=== PATIENT | female | born 1935 | race Caucasian/White ===

== ENCOUNTER 2016-07-11 09:18 | Day surgery (SDC) | payer OTHER ==
[2016-07-06 11:20] VITALS: BMI 25.7
[2016-07-11 11:07] VITALS: TEMP 98.3
[2016-07-11] MEDS ORDERED: PROPOFOL 20 ML ONE (11:16)
[2016-07-11 12:29] VITALS: BP 136/76; PULSE 56
--- NOTE | 2016-07-12 11:24 | PATH ---
Surgical Pathology Report Patient Name: SUZANNE FRANKEL [facility]. Rec. #: [id number] /Age/Gender: 1935 (Age: 80) / F Account: [id number] Location: [facility] Taken: 07/11/2016 Received: 07/11/2016 Reported: 07/12/2016 Physicians: Jon Donnelly M.D. Specimen(s) Received A: BX DUODENUM B: BX ANTRUM Clinical History Duodenal polyp Gastritis, duodenal polyp, hiatal hernia Final Diagnosis A. DUODENUM, BIOPSY: DUODENAL MUCOSA WITH NO PATHOLOGIC CHANGES. NO HISTOLOGIC EVIDENCE OF GLUTEN SENSITIVE ENTEROPATHY (CELIAC SPRUE) IDENTIFIED. B. STOMACH, ANTRUM, BIOPSY: FOCAL MILD CHRONIC GASTRITIS. IMMUNOSTAIN FOR H. PYLORI IS NEGATIVE. Electronically Signed Dwayne Frias M.D. Gross Description A. Received in formalin, labeled "duodenum" are 2 guzman, irregular portions of soft tissue averaging 0.2 cm. in greatest dimension. The specimens are submitted in toto in one cassette. B. Received in formalin, labeled "antrum" are 2 guzman, irregular portions of soft tissue averaging 0.3 cm. in greatest dimension. The specimens are submitted in toto in one cassette. 07/11/201607/11/2016
== END 2016-07-11 12:30 | disposition home or self-care (01) ==
LOC: FASU-ENDO 09:18
PROVIDERS: ATTEND Internal Medicine Gastroenterology
PROC: 0DB68ZX Excision of Stomach, Via Natural or Artificial Opening Endoscopic, Diagnostic (ICD-10-PCS; 2016-07-11)
PROC: 0DB98ZX Excision of Duodenum, Via Natural or Artificial Opening Endoscopic, Diagnostic (ICD-10-PCS; principal; 2016-07-11 11:36)
DX: Z13.810 Encounter for screening for upper gastrointestinal disorder (principal); K44.9 Diaphragmatic hernia without obstruction or gangrene; K29.50 Unspecified chronic gastritis without bleeding
CPT/HCPCS: 88305-TC; 88342-TC

== ENCOUNTER 2018-07-19 12:31 | Day surgery (SDC) | payer OTHER ==
[2018-07-18 15:06] VITALS: BMI 25.4
[2018-07-19] MEDS ORDERED: MIDAZOLAM HCL 2 MG/2 ML SINGLE DOSE VIAL ONE (13:41)
[2018-07-19] MEDS ORDERED: PROPOFOL 20 ML ONE (13:41)
[2018-07-19] MEDS ORDERED: ONDANSETRON 4 MG/2 ML VIAL IVPUSH PRN ×2 (13:50→14:47)
[2018-07-19] MEDS ORDERED: ACETAMINOPHEN 325 MG TABLET (FP) PO PRN (13:50)
[2018-07-19] MEDS ORDERED: LACTATED RINGERS SOLUTION 1,000 ML IV SCH (14:00)
[2018-07-19] MEDS ORDERED: ceFAZolin SODIUM 1 GM VIAL IVPB ONE (14:14)
[2018-07-19] MEDS ORDERED: IBUPROFEN 800 MG/8 ML IJ IVPB PRN (14:47)
[2018-07-19] MEDS ORDERED: oxyCODONE HCL 5 MG TABLET PO PRN (14:47)
[2018-07-19] MEDS ORDERED: IBUPROFEN 600 MG TABLET (FP) PO PRN (14:47)
--- NOTE | 2018-07-19 14:53 | HP ---
History & Physical Update - Physical Physical: No Change - Assessment Assessment: No Change - Plan Plan: No Change (no changes for hysteroscopy D&C , polypectomy)
[2018-07-19] MEDS ORDERED: ELECTROLYTE-148 SOLN 1,000 ML IV SCH (15:00)
[2018-07-19 16:36] VITALS: BP 145/74; PULSE 83; TEMP 98.1
--- NOTE | 2018-07-19 18:43 | OP ---
DATE OF OPERATION: 07/19/2018 PREOPERATIVE DIAGNOSIS: Pyometrium and postmenopausal bleeding. POSTOPERATIVE DIAGNOSIS: Pyometrium and postmenopausal bleeding. PROCEDURE: Hysteroscopy, dilatation and curettage, and polypectomy. SURGEON: Luis Manuel Bucio MD ANESTHESIA: General. ANESTHESIOLOGIST: Fausto Morgan MD ESTIMATED BLOOD LOSS: 100 mL. OPERATIVE PROCEDURE: The patient was taken to the operating room and adequate general anesthesia induced. In the lithotomy position, evaluation under anesthesia revealed external genitalia to be normal. A large cystocele. Second-degree uterine prolapse. Cervix, no gross lesion. Uterus was normal size. Adnexa, no masses were palpable. Then, with the weighted speculum in the vagina, anterior lip of cervix was grasped with a single-toothed tenaculum. Then, uterine cavity was sounded to 6 cm. Then, the cervix was slightly dilated with Hegar dilator, and then hysteroscope was introduced. Visualization of endocervical canal appeared to be normal. Endometrium was atrophic for the most part, but there was like a polypoid with blood clot attached to it hanging in the uterine cavity and both cornual regions were identified. No other abnormality was found except the endometrium was injected and red. Then the hysteroscope was withdrawn, and endometrium was curetted. The patient tolerated the procedure well, left the OR in good condition. LUIS MANUEL BUCIO M.D. [id number]
--- NOTE | 2018-07-24 14:20 | PATH ---
Surgical Pathology Report Patient Name: SUZANNE FRANKEL [facility]. Rec. #: [id number] /Age/Gender: 1935 (Age: 82) / F Account: [id number] Location: [facility] SURGICAL Taken: 07/19/2018 Received: 07/20/2018 Reported: 07/24/2018 Physicians: Luis Manuel Bucio M.D. Specimen(s) Received ENDOMETRIAL CURETTINGS Clinical History Postmenopausal bleeding Final Diagnosis ENDOMETRIAL CURETTINGS: SECRETORY TYPE ENDOMETRIUM SHOWING SEVERE ACUTE AND CHRONIC ENDOMETRITIS ADMIXED WITH BLOOD CLOT. SEPARATE ENDOCERVICAL TISSUE WITH SQUAMOUS METAPLASIA. Comment: Immunohistochemistry stains (block A1) [place] and Lambda done in [place], [place] ([id number]) and interpreted at [facility] show a polyclonal population of plasma cells in the stroma. Positive and negative controls (internal if applicable) show appropriate results. Electronically Signed Sina Dalton M.D. Gross Description Received in formalin labeled "endometrial curetting," is a 4.5 x 4.5 x 0.6 cm aggregate of guzman-brown tissue fragments admixed with blood clot. The formalin is filtered and the specimen is entirely submitted in a 4 cassettes. /07/20/201807/20/2018
== END 2018-07-19 16:37 | disposition home or self-care (01) ==
LOC: JASU-SURG 12:31
PROVIDERS: ATTEND Obstetrics & Gynecology
PROC: 0UDB7ZX Extraction of Endometrium, Via Natural or Artificial Opening, Diagnostic (ICD-10-PCS; principal; 2018-07-19 14:00)
PROC: 0UJD8ZZ Inspection of Uterus and Cervix, Via Natural or Artificial Opening Endoscopic (ICD-10-PCS; 2018-07-19 14:00)
DX: N95.0 Postmenopausal bleeding (principal); N71.9 Inflammatory disease of uterus, unspecified; N81.4 Uterovaginal prolapse, unspecified
CPT/HCPCS: 88305-TC; 94760

== ENCOUNTER 2018-08-28 13:00 | Observation (INO) | payer OTHER ==
--- NOTE | 2018-08-28 13:46 | PDOC ---
History of Present Illness - General Chief Complaint: Lightheaded Stated Complaint: NAUSEA Time Seen by Provider: 08/28/18 13:13 History Source: Patient Exam Limitations: No Limitations - History of Present Illness Initial Comments: 08/28/18 13:42 Pt is an 83yo F with PMH of HTN, Thyroid Nodule, Anxiety BIBA to ED with complaints of lightheadedness, dizziness and diaphoresis. Pt states she was vacuuming and when she bent over to unplug the cord, she stared feeling dizzy, nauseous and started sweating. She rested her head on her dresser and felt numbness in her arms up to the elbows. She worried and called EMS. She denies chest pain, sob, syncope at the time. She has been having congestion x2 weeks and is taking a decongestant which is helping her cough up the phlegm. PMD: Boxer PMH: see hpi PSH: cholecystectomy Meds: Allergies: ndka Past History - Past Medical History Allergies/Adverse Reactions: Allergies Allergy/AdvReac Type Severity Reaction Status Date / Time No Known Drug Allergies AdvReac Verified 08/28/18 13:07 Home Medications: Ambulatory Orders Ergocalciferol (Vitamin D2) [Vitamin D2] 2,000 unit PO DAILY 07/18/18 Multivit-Min/FA/Lycopen/Lutein [Centrum Silver Tablet] 1 each PO DAILY 07/18/18 Sertraline HCl [Zoloft] 100 mg PO DAILY 07/18/18 Vitamin E 400 unit PO DAILY 07/18/18 Omeprazole 20 mg PO DAILY 08/28/18 Anemia: No Asthma: No Cancer: No Cardiac Disorders: No (CAD-PT DENIES) CVA: No COPD: No CHF: No Dementia: No Diabetes: No GI Disorders: Yes (GERD, GASTRITIS; SCHTZKI'S RING; DUODENAL ADENOMA) Disorders: No HTN: Yes Hypercholesterolemia: No Liver Disease: No Seizures: No Thyroid Disease: Yes (NODULE PARATHROID RESOLVED) - Surgical History Abdominal Surgery: No Appendectomy: No Cardiac Surgery: No Cholecystectomy: Yes Lung Surgery: No Neurologic Surgery: No Orthopedic Surgery: No - Suicide/Smoking/Psychosocial Hx Smoking History: Former smoker Have you smoked in the past 12 months: No If you are a former smoker, when did you quit?: many years ago Information on smoking cessation initiated: No Hx Alcohol Use: Yes (RARE) Drug/Substance Use Hx: No Substance Use Type: None Hx Substance Use Treatment: No Review of Systems - Review of Systems Constitutional: No: Chills, Fever, Weakness HEENTM: No: Eye Pain, Blurred Vision, Double Vision Respiratory: No: Cough, Shortness of Breath, Hemoptysis Cardiac (ROS): Yes: Lightheadedness. No: Chest Pain, Palpitations, Syncope ABD/GI: Yes: Nausea. No: Constipated, Diarrhea, Rectal Bleeding, Vomiting : No: Symptoms Reported Musculoskeletal: No: Back Pain, Joint Pain, Neck Pain Integumentary: No: Symptoms Reported Neurological: Yes: See HPI, Numbness, Dizziness. No: Headache, Tingling, Tremors, Weakness *Physical Exam - Vital Signs Last Vital Signs Temp Pulse Resp BP Pulse Ox 98.3 F 74 18 148/72 96 08/28/18 13:08 08/28/18 13:08 08/28/18 13:08 08/28/18 13:08 08/28/18 13:08 - Physical Exam General Appearance: Yes: Nourished, Appropriately Dressed. No: Apparent Distress HEENT: positive: EOMI, JAH, Normal ENT Inspection Neck: positive: Trachea midline, Supple. negative: Carotid bruit, Lymphadenopathy (R), Lymphadenopathy (L) Respiratory/Chest: positive: Lungs Clear, Normal Breath Sounds. negative: Crackles, Rales, Rhonchi, Stridor, Wheezing Cardiovascular: positive: Regular Rhythm, Regular Rate, S1, S2. negative: Edema , JVD, Murmur Vascular Pulses: Carotid (R): 2+, Carotid (L): 2+, Dorsalis-Pedis (R): 2+, Doralis-Pedis (L): 2+ Gastrointestinal/Abdominal: positive: Normal Bowel Sounds, Soft. negative: Tender Musculoskeletal: negative: CVA Tenderness, Vertebral Tenderness Extremity: positive: Normal Capillary Refill, Pelvis Stable. negative: Pedal Edema, Swelling, Calf Tenderness Integumentary: positive: Normal Color, Dry, Warm Neurologic: positive: vegetable trimmer II-XII NML intact, Fully Oriented, Alert, Normal Mood/ Affect, Normal Response, Motor Strength 5/5 ED Treatment Course - LABORATORY CBC & Chemistry Diagram: 08/28/18 14:10 08/28/18 14:10 Medical Decision Making - Medical Decision Making 08/28/18 23:35 Pt is an 83yo F with PMH of HTN, Thyroid Nodule, Anxiety BIBA to ED with complaints of lightheadedness, dizziness and diaphoresis. Pt states she was vacuuming and when she bent over to unplug the cord, she stared feeling dizzy, nauseous and started sweating. She rested her head on her dresser and felt numbness in her arms up to the elbows. She worried and called EMS. She denies chest pain, sob, syncope at the time. She has been having congestion x2 weeks and is taking a decongestant which is helping her cough up the phlegm. Vitals: wnl PE: benign, lungs cta, no neurological deficits. normal heart sounds Ddx includes but not limited to syncope/presyncope (arrhytmia, v. orthostatic v. dehydration), cva/tia, bronchitis -labs, trop -ekg, cxr -fluids, meclizine labs wnl, trop negative. ekg nsr, no eileen or depressions. cxr no acute pathology will admit for presyncope. *DC/Admit/Observation/Transfer Diagnosis at time of Disposition: Near syncope, Lightheaded - Referrals - Patient Instructions - Post Discharge Activity
[2018-08-28 14:22] LABS: BASO % 1.3 % (0-2.0); EOS % 1.5 % (0-4.5); HEMATOCRIT 42.6 % (32.4-45.2); HEMOGLOBIN 14.4 GM/dL (10.7-15.3); LYMPH % 10.7 % (8-40); MCH 26.9 pg (25.7-33.7); MCHC 33.9 g/dl (32.0-36.0); MEAN CELL VOLUME 79.3 fl (80-96); MEAN PLT VOLUME 7.8 fl (7.5-11.1); MONO % 9.4 % (3.8-10.2); NEUT % 77.1 % (42.8-82.8); PLATELET COUNT 373 K/MM3 (134-434); RBC 5.37 M/mm3 (3.60-5.2); RDW 14.6 % (11.6-15.6); WHITE BLOOD COUNT 11.7 K/mm3 (4.0-10.0)
[2018-08-28 14:56] LABS: ALBUMIN 3.8 g/dl (3.4-5.0); ALK PHOS 95 U/L (45-117); ANION GAP 7 MMOL/L (8-16); BILIRUBIN,TOTAL 0.5 mg/dL (0.2-1); BLOOD UREA NITROGEN 22 mg/dL (7-18); CALCIUM 9.1 mg/dL (8.5-10.1); CHLORIDE 102 mmol/L (98-107); CO2 27 mmol/L (21-32); GLUCOSE,RANDOM 98 mg/dL (74-106); MAGNESIUM 1.9 mg/dL (1.8-2.4); POTASSIUM 4.6 mmol/L (3.5-5.1); SGOT/AST 18 U/L (15-37); SGPT/ALT 23 U/L (13-61); SODIUM 136 mmol/L (136-145); TOT PROT 7.5 g/dl (6.4-8.2)
--- NOTE | 2018-08-28 15:28 | PDOC ---
Documentation entered by Estuardo Sparrow SCRIBE, acting as scribe for Hernan Veliz MD. Hernan Veliz MD: This documentation has been prepared by the Andrews lerner Collisia, SCRIBE, under my direction and personally reviewed by me in its entirety. I confirm that the documentation accurately reflects all work, treatment, procedures, and medical decision making performed by me. Attending Attestation - Resident Resident Name: Chanda Smith - ED Attending Attestation I have performed the following: I have examined & evaluated the patient, The case was reviewed & discussed with the resident, I agree w/resident's findings & plan, Exceptions are as noted - HPI HPI: 08/28/18 14:55 The patient is a 83 year old female with a significant past medical history of hypertension, prolapse uterus, anxiety and thyroid nodule who presents to the emergency department with lightheadedness since earlier today. The patient reports that she was at home cleaning earlier this morning when she began to experience an onset of lightheadedness. The patient states that she had just finished vacuuming and bent down to unplug it from the outlet when she felt an onset of dizziness. The patient states that she felt like she was going to pass out and she had some difficulty making it over to her bed to sit down. The patient reports some associated nausea and diaphoresis with her lightheadedness. The patient also reports some associated arm numbness. She denies any blurry vision, extremity weakness, chest pain, shortness of breath. The patient denies any fever, chills, vomiting, diarrhea, constipation or urinary symptoms. The patient denies any other complaint. - Physicial Exam PE: 08/28/18 15:13 Vitals: Triage vital signs reviewed General Appearance: No acute distress, well nourished, well developed Head: Atraumatic Chest Wall: Nontender Cardiac: Regular rate and rhythm, no murmurs, no rubs, no gallops Lungs: Clear to auscultation bilateral, good air movement bilaterally Abdomen: Soft, nondistended, normal bowel sounds, nontender to palpation Genitourinary: Rectal: Exam deferred Extremities: Full range of motion to all extremities, no cyanosis, clubbing, or edema Skin: Warm and dry, no rashes or lesions, no rash, no petechiae Neuro: AOX3; Cranial Nerves 2-12 grossly intact, Strength intact to all extremities, Sensation intact to all extremities, gait normal Psych: Normal mood, normal affect - Medical Decision Making 08/28/18 14:55 The patient is a 83 year old female with a significant past medical history of hypertension, prolapse uterus, anxiety and thyroid nodule who presents to the emergency department with lightheadedness since earlier today. The patient will get labs, EKG and chest X-ray for further evaluation. EKG laboratory analysis grossly unremarkable EKG demonstrates ventricular paced rhythm with occasional PVCs Interpreted by me Given that patient still remained somewhat symptomatic with this sensation of presyncope/lightheadedness we'll observe overnight for telemetry monitoring
--- NOTE | 2018-08-28 15:36 | EKG ---
Test Reason : Blood Pressure : / mmHG Vent. Rate : 076 BPM Atrial Rate : 076 BPM P-R Int : 122 ms QRS Dur : 078 ms QT Int : 408 ms P-R-T Axes : 057 049 059 degrees QTc Int : 459 ms NORMAL SINUS RHYTHM NORMAL ECG WHEN COMPARED WITH ECG OF 24-AUG-2010 15:17, NO SIGNIFICANT CHANGE WAS FOUND Confirmed by Markell Sanchez ([id number]) on 08/28/2018 3:35:32 PM Referred By: Confirmed By:Markell Sanchez
[2018-08-28] MEDS ORDERED: MECLIZINE HCL 25 MG TABLET (FP) PO ONE (16:27)
[2018-08-28] MEDS ORDERED: SODIUM CHLORIDE 0.9% 1000 ML INFUS.BAG IV ONE (16:27)
[2018-08-28] MEDS ORDERED: MECLIZINE HCL 25 MG TABLET (FP) ONE (16:42)
--- NOTE | 2018-08-28 17:04 | HP ---
CHIEF COMPLAINT: "i feel light headed" PCP: HISTORY OF PRESENT ILLNESS: This is an 83yo F with PMH of HTN, Thyroid Nodule, Anxiety, who presents to ED due to lightheadedness, dizziness and diaphoresis. She was vacuum cleaning and felt at baseline, when she bent over and suddenly felt light headed, sweaty, flushed and nauseous. the sensation quickly passed when she rested other than mild lightheadedness. she had similar episodes in the past with position change but less severe. she denies cp, palpitations, syncope, tinnitus, vomiting. patient also endorses light cough productive of small amounts of green sputum x 2w, has not taen abx. deneis f/c, sob. ER course was notable for: (1)cxr (2)ekg, labs (3)IVF, antivert Recent Travel: denies PAST MEDICAL HISTORY: as above PAST SURGICAL HISTORY: as above Social History: Smoking: denies Alcohol: denies Drugs: denies Family History: noncontributory Allergies No Known Drug Allergies Adverse Reaction (Verified 08/28/18 13:07) HOME MEDICATIONS: Home Medications Medication Instructions Recorded Ergocalciferol (Vitamin D2) 2,000 unit PO DAILY 07/18/18 [Vitamin D2] Multivit-Min/FA/Lycopen/Lutein 1 each PO DAILY 07/18/18 [Centrum Silver Tablet] Sertraline HCl [Zoloft] 100 mg PO DAILY 07/18/18 Vitamin E 400 unit PO DAILY 07/18/18 Omeprazole 20 mg PO DAILY 08/28/18 REVIEW OF SYSTEMS CONSTITUTIONAL: Absent: fever, chills HEENT: Absent: rhinorrhea, nasal congestion, throat pain CARDIOVASCULAR: Absent: chest pain, syncope, palpitations, irregular heart rate, peripheral edema RESPIRATORY: Absent: shortness of breath, dyspnea with exertion, orthopnea, wheezing, stridor , hemoptysis GASTROINTESTINAL: Absent: abdominal pain, abdominal distension, nausea, vomiting, diarrhea, constipation, melena, hematochezia GENITOURINARY: Absent: dysuria, flank pain MUSCULOSKELETAL: Absent: back pain, neck pain SKIN: Absent: rash, itching, pallor HEMATOLOGIC/IMMUNOLOGIC: Absent: easy bleeding, easy bruising, lymphadenopathy, frequent infections ENDOCRINE: Absent: unexplained weight gain, unexplained weight loss, heat intolerance, cold intolerance NEUROLOGIC: Absent: headache, focal weakness or paresthesias PSYCHIATRIC: Absent: anxiety, depression PHYSICAL EXAMINATION Vital Signs - 24 hr 08/28/18 08/28/18 08/28/18 13:08 14:20 14:39 Temperature 98.3 F Pulse Rate 74 Pulse Rate [ 80 Right Radial] Pulse Rate [ 76 Right side Standing] Pulse Rate [ 80 Right side Supine] Respiratory 18 18 Rate Blood Pressure 148/72 Blood Pressure 151/83 [Left Arm] Blood Pressure 152/87 [Right side Standing] Blood Pressure 169/64 [Right side Supine] O2 Sat by Pulse 96 95 Oximetry (%) GENERAL: Awake, alert, and fully oriented, in no acute distress. HEAD: Normal with no signs of trauma. EYES: Pupils equal, round and reactive to light, extraocular movements intact, sclera anicteric, conjunctiva clear. EARS, NOSE, THROAT: Moist mucous membranes. NECK: supple without JVD LUNGS: Breath sounds equal, clear to auscultation bilaterally. HEART: Regular rate and rhythm, normal S1 and S2 ABDOMEN: Soft, nontender, not distended, normoactive bowel sounds, no guarding, no rebound, no masses. MUSCULOSKELETAL: No CVA tenderness. UPPER EXTREMITIES: 2+ pulses, warm, well-perfused. No cyanosis. No clubbing. No peripheral edema. LOWER EXTREMITIES: 2+ pulses, warm, well-perfused. No calf tenderness. No peripheral edema. NEUROLOGICAL: Cranial nerves II-XII grossly intact. Normal speech. PSYCHIATRIC: Cooperative. Good eye contact. Appropriate mood and affect. SKIN: Warm, dry Laboratory Results - last 24 hr 08/28/18 08/28/18 14:10 14:10 WBC 11.7 H RBC 5.37 H Hgb 14.4 Hct 42.6 MCV 79.3 L MCH 26.9 MCHC 33.9 RDW 14.6 Plt Count 373 MPV 7.8 Absolute Neuts (auto) 9.0 H Neutrophils % 77.1 Lymphocytes % 10.7 Monocytes % 9.4 Eosinophils % 1.5 Basophils % 1.3 Nucleated RBC % 0 Sodium 136 Potassium 4.6 Chloride 102 Carbon Dioxide 27 Anion Gap 7 L BUN 22 H Creatinine 1.0 Creat Clearance w eGFR 53.08 Random Glucose 98 Calcium 9.1 Magnesium 1.9 Total Bilirubin 0.5 AST 18 ALT 23 Alkaline Phosphatase 95 Troponin I < 0.02 Total Protein 7.5 Albumin 3.8 ASSESSMENT/PLAN: This is an 83yo F with PMH of HTN, Thyroid Nodule, Anxiety, who presents to ED due to lightheadedness, dizziness and diaphoresis. positional dizziness, likely orthostatic bronchitis HTN -ekg wnl, no acs, no strain. -IVF hydration -orthostatic vital signs tomorrow -azithomycin -continue zoloft and ppi Problem List - Problem (1) Bronchitis Code(s): J40 - BRONCHITIS, NOT SPECIFIED ACUTE OR CHRONIC (2) Lightheaded Code(s): R42 - DIZZINESS AND GIDDINESS (3) Near syncope Code(s): R55 - SYNCOPE AND COLLAPSE Visit type - Emergency Visit Emergency Visit: Yes ED Registration Date: 08/28/18 Care time: The patient presented to the Emergency Department on the above date and was hospitalized for further evaluation of their emergent condition. - New Patient This patient is new to me today: Yes Date on this admission: 08/28/18 - Critical Care Critical Care patient: No
[2018-08-28] MEDS ORDERED: SODIUM CHLORIDE 1,000 ML IV SCH (17:30)
[2018-08-28] MEDS ORDERED: AZITHROMYCIN 250 MG TABLET ONE (18:26)
[2018-08-28] MEDS: AZITHROMYCIN 250 MG TABLET PO SCH (18:29)
--- NOTE | 2018-08-28 20:14 | PN ---
Teaching Attending Note Name of Resident: Blanca Garrett ATTENDING PHYSICIAN STATEMENT I saw and evaluated the patient. I reviewed the resident's note and discussed the case with the resident. I agree with the resident's findings and plan as documented. SUBJECTIVE: This is an 83yo F with PMHx of HTN, Thyroid Nodule, Anxiety, who presents to ED due to lightheadedness, dizziness and diaphoresis. She was vacuum cleaning with Ammonia and felt lightheadedness , and as she was cleaning became lightheaded without any syncopal event. OBJECTIVE: Vital Signs Temperature 98.8 F 08/28/18 18:41 Pulse Rate 80 08/28/18 18:41 Respiratory Rate 20 08/28/18 19:48 Blood Pressure 145/74 08/28/18 18:41 O2 Sat by Pulse Oximetry (%) 97 08/28/18 19:48 GENERAL: Awake, alert, and fully oriented, in no acute distress. HEAD: Normal with no signs of trauma. EYES: Pupils equal, round and reactive to light, extraocular movements intact, sclera anicteric, conjunctiva clear. EARS, NOSE, THROAT: Moist mucous membranes. NECK: supple without JVD LUNGS: Breath sounds equal, clear to auscultation bilaterally. HEART: Regular rate and rhythm, normal S1 and S2 ABDOMEN: Soft, nontender, not distended, normoactive bowel sounds, no guarding, no rebound, no masses. MUSCULOSKELETAL: No CVA tenderness. EXTREMITIES: 2+ pulses, warm, well-perfused. No calf tenderness. No peripheral edema. NEUROLOGICAL: Cranial nerves II-XII grossly intact. Normal speech. PSYCHIATRIC: Cooperative. Good eye contact. Appropriate mood and affect. SKIN: Warm, dry CBCD WBC 11.7 K/mm3 (4.0-10.0) H 08/28/18 14:10 RBC 5.37 M/mm3 (3.60-5.2) H 08/28/18 14:10 Hgb 14.4 GM/dL (10.7-15.3) 08/28/18 14:10 Hct 42.6 % (32.4-45.2) 08/28/18 14:10 MCV 79.3 fl (80-96) L 08/28/18 14:10 MCHC 33.9 g/dl (32.0-36.0) 08/28/18 14:10 RDW 14.6 % (11.6-15.6) 08/28/18 14:10 Plt Count 373 K/MM3 (134-434) 08/28/18 14:10 MPV 7.8 fl (7.5-11.1) 08/28/18 14:10 CMP Sodium 136 mmol/L (136-145) 08/28/18 14:10 Potassium 4.6 mmol/L (3.5-5.1) 08/28/18 14:10 Chloride 102 mmol/L (98-107) 08/28/18 14:10 Carbon Dioxide 27 mmol/L (21-32) 08/28/18 14:10 Anion Gap 7 MMOL/L (8-16) L 08/28/18 14:10 BUN 22 mg/dL (7-18) H 08/28/18 14:10 Creatinine 1.0 mg/dL (0.55-1.3) 08/28/18 14:10 Creat Clearance w eGFR 53.08 (>60) 08/28/18 14:10 Random Glucose 98 mg/dL (74-106) 08/28/18 14:10 Calcium 9.1 mg/dL (8.5-10.1) 08/28/18 14:10 Total Bilirubin 0.5 mg/dL (0.2-1) 08/28/18 14:10 AST 18 U/L (15-37) 08/28/18 14:10 ALT 23 U/L (13-61) 08/28/18 14:10 Alkaline Phosphatase 95 U/L (45-117) 08/28/18 14:10 Total Protein 7.5 g/dl (6.4-8.2) 08/28/18 14:10 Albumin 3.8 g/dl (3.4-5.0) 08/28/18 14:10 CARDIAC ENZYMES Troponin I < 0.02 ng/ml (0.00-0.05) 08/28/18 14:10 Current Medications Generic Name Dose Route Start Last Admin Trade Name Freq PRN Reason Stop Dose Admin Azithromycin 250 mg 08/28/18 17:30 08/28/18 18:29 Zithromax - PO 250 mg DAILY CLIFF Administration Sodium Chloride 1,000 mls @ 75 mls/hr 08/28/18 17:30 Normal Saline - IV ASDIR CLIFF Pantoprazole Sodium 40 mg 08/29/18 10:00 Protonix - PO DAILY CLIFF Sertraline HCl 100 mg 08/29/18 10:00 Zoloft - PO DAILY [facility] Home Medications Medication Instructions Recorded Ergocalciferol (Vitamin D2) 2,000 unit PO DAILY 07/18/18 [Vitamin D2] Multivit-Min/FA/Lycopen/Lutein 1 each PO DAILY 07/18/18 [Centrum Silver Tablet] Sertraline HCl [Zoloft] 100 mg PO DAILY 07/18/18 Vitamin E 400 unit PO DAILY 07/18/18 Omeprazole 20 mg PO DAILY 08/28/18 ASSESSMENT AND PLAN: This is an 83yo F with PMHx of HTN, Thyroid Nodule, Anxiety, who presents to ED due to lightheadedness, dizziness with diaphoresis. # Acute dehydration , will continue IVF # s/p dizziness most likely orthostatic # Acute bronchitis with cough on azithomycin # HTN # Hx of depression on Zoloft continue -ekg wnl, no acs, no strain. -IVF hydration -orthostatic vital signs tomorrow DVt Px: lovenox
[2018-08-28 23:13] VITALS: BMI 26.0
[2018-08-29 06:50] LABS: HEMATOCRIT 39.7 % (32.4-45.2); HEMOGLOBIN 13.3 GM/dL (10.7-15.3); MCH 26.4 pg (25.7-33.7); MCHC 33.4 g/dl (32.0-36.0); MEAN PLT VOLUME 8.2 fl (7.5-11.1); PLATELET COUNT 328 K/MM3 (134-434); RBC 5.03 M/mm3 (3.60-5.2); RDW 14.6 % (11.6-15.6); WHITE BLOOD COUNT 7.8 K/mm3 (4.0-10.0)
[2018-08-29 07:09] LABS: ANION GAP 7 MMOL/L (8-16); BLOOD UREA NITROGEN 20 mg/dL (7-18); CALCIUM 8.3 mg/dL (8.5-10.1); CHLORIDE 108 mmol/L (98-107); CO2 26 mmol/L (21-32); GLUCOSE,RANDOM 84 mg/dL (74-106); MAGNESIUM 1.9 mg/dL (1.8-2.4); PHOSPHOROUS 3.7 mg/dL (2.5-4.9); POTASSIUM 4.5 mmol/L (3.5-5.1); SODIUM 141 mmol/L (136-145)
[2018-08-29] MEDS: AZITHROMYCIN 250 MG TABLET PO SCH (09:44)
[2018-08-29] MEDS ORDERED: SERTRALINE HCL 50 MG TABLET (FP) PO SCH (10:00)
[2018-08-29] MEDS ORDERED: PANTOPRAZOLE 40 MG TABLET (FP) PO SCH (10:00)
[2018-08-29] MEDS ORDERED: guaiFENesin 200 MG/10 ML 10 ML UNIT-DOSE CUPS PO PRN (11:32)
[2018-08-29 11:57] VITALS: BP 156/90; PULSE 96; TEMP 98.3
--- NOTE | 2018-08-29 14:06 | DS ---
Physical Exam: SUBJECTIVE: Patient seen and examined at bedside this morning. No acute events overnight. Patient has no complaints and reports that her dizziness has improved since she was admitted. She denies fever, chills, headache, dizziness, chest pain, SOB, abdominal pain, diarrhea, urinary symptoms. OBJECTIVE: Vital Signs Temperature 98.3 F 08/29/18 10:00 Pulse Rate 96 H 08/29/18 10:00 Respiratory Rate 18 08/29/18 10:00 Blood Pressure 156/90 08/29/18 10:00 O2 Sat by Pulse Oximetry (%) 97 08/29/18 09:00 PHYSICAL EXAM GENERAL: The patient is awake, alert, and fully oriented, in no acute distress. HEAD: Normal with no signs of trauma. EYES: PERRLA, EOMI, sclera anicteric, conjunctiva clear. ENT: oropharynx clear without exudates, moist mucous membranes. NECK: Trachea midline, full range of motion, supple. LUNGS: Breath sounds equal, clear to auscultation bilaterally. HEART: Regular rate and rhythm, S1, S2 without murmur, rub or gallop. ABDOMEN: Soft, nontender, nondistended, normoactive bowel sounds. EXTREMITIES: 2+ pulses, warm, well-perfused, no edema. NEUROLOGICAL: Cranial nerves II through XII grossly intact. Motor strength 5/5, sensation intact. Normal speech, gait not observed. PSYCH: Normal mood, normal affect. SKIN: Warm, dry, normal turgor, no rashes or lesions noted. LABS Laboratory Results - last 24 hr 08/28/18 08/28/18 08/29/18 14:10 14:10 06:00 WBC 11.7 H 7.8 RBC 5.37 H 5.03 Hgb 14.4 13.3 Hct 42.6 39.7 MCV 79.3 L 79.0 L MCH 26.9 26.4 MCHC 33.9 33.4 RDW 14.6 14.6 Plt Count 373 328 MPV 7.8 8.2 Absolute Neuts (auto) 9.0 H Neutrophils % 77.1 Lymphocytes % 10.7 Monocytes % 9.4 Eosinophils % 1.5 Basophils % 1.3 Nucleated RBC % 0 Sodium 136 Potassium 4.6 Chloride 102 Carbon Dioxide 27 Anion Gap 7 L BUN 22 H Creatinine 1.0 Creat Clearance w eGFR 53.08 Random Glucose 98 Calcium 9.1 Phosphorus Magnesium 1.9 Total Bilirubin 0.5 AST 18 ALT 23 Alkaline Phosphatase 95 Troponin I < 0.02 Total Protein 7.5 Albumin 3.8 08/29/18 06:00 WBC RBC Hgb Hct MCV MCH MCHC RDW Plt Count MPV Absolute Neuts (auto) Neutrophils % Lymphocytes % Monocytes % Eosinophils % Basophils % Nucleated RBC % Sodium 141 Potassium 4.5 Chloride 108 H Carbon Dioxide 26 Anion Gap 7 L BUN 20 H Creatinine 1.0 Creat Clearance w eGFR 53.08 Random Glucose 84 Calcium 8.3 L Phosphorus 3.7 Magnesium 1.9 Total Bilirubin AST ALT Alkaline Phosphatase Troponin I Total Protein Albumin HOSPITAL COURSE: Date of Admission:08/28/18 Date of Discharge: 08/29/18 Patient is an 83 year old female past medical history of HTN, thyroid nodule, and anxiety presents with lightheadedness and dizziness after bending over while cleaning, using bleach. Patient was given IV fluids and symptoms improved. Patient was advised to keep areas well ventilated while using chemical construction economist. She was discharged with instructions to follow up with PCP and to continue azithromycin for 3 more days. Minutes to complete discharge: 36 Discharge Summary Reason For Visit: LIGHTHEADNESS/PRE-SYNCOPE Condition: Improved - Instructions Diet, Activity, Other Instructions: You were admitted to the hospital because of lightheadedness. It is important that you follow up with your primary care physician in 1 week. You will need to take your antibiotics for 3 more days (complete on 09/01) Your blood pressure was elevated during your hospital stay. It is important to follow up with your primary care doctor to repeat your blood pressure. If you experience chest pain, loss of consciousness, or worsening of your dizziness and lightheadedness, please call your primary care physician or go to your nearest emergency room. Referrals: Ceasar Canas [Primary Care Provider] - 1 Week Disposition: HOME - Home Medications Comprehensive Discharge Medication List: Ambulatory Orders Ergocalciferol (Vitamin D2) [Vitamin D2] 2,000 unit PO DAILY 07/18/18 Multivit-Min/FA/Lycopen/Lutein [Centrum Silver Tablet] 1 each PO DAILY 07/18/18 Sertraline HCl [Zoloft] 100 mg PO DAILY 07/18/18 Vitamin E 400 unit PO DAILY 07/18/18 Azithromycin [Zithromax 250mg Tablets -] 250 mg PO DAILY #3 tablet 08/29/18 Guaifenesin [Robitussin -] 10 ml PO Q8H PRN cup 08/29/18 This patient is new to me today: Yes Date on this admission: 08/29/18 Emergency Visit: Yes ED Registration Date: 08/28/18 Care time: The patient presented to the Emergency Department on the above date and was hospitalized for further evaluation of their emergent condition. Critical Care patient: No - Discharge Referral Referred to [facility] Med P.C.: No
--- NOTE | 2018-08-29 14:53 | PN ---
Teaching Attending Note Name of Resident: Jossy Hill ATTENDING PHYSICIAN STATEMENT I saw and evaluated the patient. I reviewed the resident's note and discussed the case with the resident. I agree with the resident's findings and plan as documented. SUBJECTIVE: Pt. seen and examined at bedside. Feeling better, dizziness has resolved. Coughing with yellow sputum, improving, afebrile. No acute events overnight. OBJECTIVE: Vital Signs - 24 hr 08/28/18 08/28/18 08/28/18 18:38 18:41 19:48 Temperature 98.8 F Pulse Rate Pulse Rate [ 80 Right Radial] Respiratory 20 20 Rate Blood Pressure Blood Pressure 145/74 [Left Arm] O2 Sat by Pulse 96 96 97 Oximetry (%) 08/28/18 08/28/18 08/29/18 22:00 22:40 02:00 Temperature 98.1 F 98.4 F Pulse Rate 78 83 Pulse Rate [ Right Radial] Respiratory 20 20 18 Rate Blood Pressure 131/76 156/84 Blood Pressure [Left Arm] O2 Sat by Pulse 97 Oximetry (%) 08/29/18 08/29/18 08/29/18 03:00 06:00 09:00 Temperature 98.0 F Pulse Rate 83 Pulse Rate [ Right Radial] Respiratory 18 18 18 Rate Blood Pressure 146/82 Blood Pressure [Left Arm] O2 Sat by Pulse 97 97 Oximetry (%) 08/29/18 10:00 Temperature 98.3 F Pulse Rate 96 H Pulse Rate [ Right Radial] Respiratory 18 Rate Blood Pressure 156/90 Blood Pressure [Left Arm] O2 Sat by Pulse Oximetry (%) PHYSICAL EXAM: General: NAD, comfortably lying in bed CVS: S1S2, RRR Lungs: CTA B/L, no w/r/r, unlabored Abd: Soft, NT/ND, NABS Ext: no c/c/e, 2+DPP Laboratory Results - last 24 hr 08/28/18 08/29/18 08/29/18 14:10 06:00 06:00 WBC 7.8 RBC 5.03 Hgb 13.3 Hct 39.7 MCV 79.0 L MCH 26.4 MCHC 33.4 RDW 14.6 Plt Count 328 MPV 8.2 Sodium 136 141 Potassium 4.6 4.5 Chloride 102 108 H Carbon Dioxide 27 26 Anion Gap 7 L 7 L BUN 22 H 20 H Creatinine 1.0 1.0 Creat Clearance w eGFR 53.08 53.08 Random Glucose 98 84 Calcium 9.1 8.3 L Phosphorus 3.7 Magnesium 1.9 1.9 Total Bilirubin 0.5 AST 18 ALT 23 Alkaline Phosphatase 95 Troponin I < 0.02 Total Protein 7.5 Albumin 3.8 Medication list reviewed Imaging: CXR: clear, no acute pathology EKG: NSR, no ischemic changes ASSESSMENT AND PLAN: 83 year old female PMHx HTN, thyroid nodule, and anxiety presents with lightheadedness and dizziness after bending over while cleaning, using bleach. 1) Presyncope, likely vasovagal, orthostatic in nature -improved with hydration -advised to keep areas well ventilated while using chemical medical territory manager -no indication for meclizine 2) Acute bronchitis -complete azithromycin course -mucolytics -will fu with PCP o/p 3) HTN not on any home meds -patient was previously treated and taken off meds recently by PCP -will followup outpatient, stable 4) Depression -mood stable on zoloft Dispo: DC today with outpatient follow-up patient understands and is agreeable to above plan Problem List - Problems (1) Bronchitis Code(s): J40 - BRONCHITIS, NOT SPECIFIED ACUTE OR CHRONIC (2) Lightheaded Code(s): R42 - DIZZINESS AND GIDDINESS (3) Near syncope Code(s): R55 - SYNCOPE AND COLLAPSE
[2018-08-30] MEDS ORDERED: PATIENT'S OWN MEDICATION (NON-FORMULARY) (Sertraline Hcl [Zoloft] 100 MG) PO SCH (10:00)
== END 2018-08-29 14:01 | disposition home or self-care (01) ==
LOC: JER 13:00 → JERBED 15:29 → J4S 20:58
PROVIDERS: ADMIT Internal Medicine; ATTEND Internal Medicine
PROC: 3E0337Z Introduction of Electrolytic and Water Balance Substance into Peripheral Vein, Percutaneous Approach (ICD-10-PCS; principal; 2018-08-28)
DX: R55 Syncope and collapse (principal); R42 Dizziness and giddiness; I10 Essential (primary) hypertension; E04.1 Nontoxic single thyroid nodule; F41.9 Anxiety disorder, unspecified; Z87.891 Personal history of nicotine dependence; E86.0 Dehydration; J20.9 Acute bronchitis, unspecified
CPT/HCPCS: 36415; 71045-TC-FY; 80048; 80053; 83735; 84100; 84484; 85025; 85027; 93005; 93010; 99285-25; G0378; J7030